=== PATIENT | female | born 1950 | race Caucasian/White ===

== ENCOUNTER → 2020-01-08 10:50 | Outpatient (CLI) | payer MEDICARE, OTHER, SELFPAY ==
--- NOTE | 2020-01-08 11:10 | RAD_ITS ---
STUDY: X-RAY - CERVICAL SPINE REASON FOR EXAM: Female, 69 years old. NECK PAIN TECHNIQUE: 3 view(s) of the cervical spine were obtained. COMPARISON: None FINDINGS: Craniocervical junction is intact and aligned. There is mild reversal of cervical lordosis with kyphosis centered on C4-C5. There are multilevel age-appropriate degenerative changes. Mineralization is decreased. There is superimposed endplate related and osteophyte based sclerosis. Paravertebral soft tissues are intact and the airways are patent. RAD/Cerv Spine 4 or 5 Views IMPRESSION: Age-related spondylosis. Electronically Signed: Bhavik Lozano, at 19:01 EST Tel , Service support ,
== END ==
PROVIDERS: PCP Internal Medicine; Referring Provider Nurse Practitioner Family; Visit Provider Nurse Practitioner Family
DX: M54.2 Cervicalgia (principal)
CPT/HCPCS: 72050

== ENCOUNTER → 2020-06-17 06:21 | Outpatient (CLI) | payer MEDICARE, OTHER, SELFPAY ==
--- NOTE | 2020-06-17 06:36 | MRI_ITS ---
STUDY: MRI CERVICAL SPINE WITHOUT CONTRAST REASON FOR EXAM: Female, 70 years old. neck pain, bilat hands/forearm pain TECHNIQUE: Standardized fat and water weighted pulse sequences were obtained in the sagittal and axial planes. COMPARISON: X-ray 01/08/2020 FINDINGS: Normal foramen magnum and brainstem-cervical cord junction. Normal craniovertebral junction. Normal anterior atlantoaxial articulation. Normal odontoid process. There is straightening of the normal cervical lordosis. Normal vertebral bodies and posterior osseous elements. C2-3: Normal endplates. Normal disc height, signal and morphology. Normal central canal and intervertebral neural foramina. C3-4: Normal endplates. Normal disc height, signal and morphology. Normal central canal and intervertebral neural foramina. C4-5: Mild broad disc osteophyte complex produces mild spinal stenosis but no neural foraminal stenosis. C5-6: 5 mm retrolisthesis of C5 on C6 with a moderate broad disc osteophyte complex asymmetric left produces moderate spinal stenosis with effacement of the left hemicord and moderate left neural foraminal stenosis. C6-7: Moderate broad disc osteophyte complex produces moderate spinal stenosis and mild bilateral neural foraminal stenosis. C7-T1: Normal endplates. Normal disc height, signal and morphology. Normal central canal and intervertebral neural foramina. Normal cervical cord. Normal visualized soft tissue structures. MRI/Spine Cervical (Routine) IMPRESSION: Multilevel degenerative changes, as described above. Electronically Signed: Colby Heard MD at 15:08 EDT Tel , Service support ,
== END ==
PROVIDERS: PCP Internal Medicine; Referring Provider Anesthesiology Pain Medicine; Visit Provider Anesthesiology Pain Medicine
DX: M50.30 Other cervical disc degeneration, unspecified cervical region (principal); M54.12 Radiculopathy, cervical region
CPT/HCPCS: 72141

== ENCOUNTER 2020-09-17 16:22 | Emergency (ER) | payer MEDICARE, OTHER, SELFPAY ==
[2020-09-17 16:24] VITALS: BP 144/99; PULSE 88; RESP 18; TEMP 36.1; O2SAT 99
--- NOTE | 2020-09-17 16:47 | ED.VIS.GEN ---
History of Present Illness Chief Complaint: Fall Informant: Patient Onset: Today Maximum Severity: Mild Narrative: Patient presents today reporting a fall she basically tripped over her cat fell forward struck the coffee table suffered laceration to the right forehead, she had no LOC she is on no blood thinners she has no neck chest or abdominal pain no extremity pain no back pain has a very mild headache no nausea or vomiting her functional status neurologic status is baseline and normal her tetanus is up-to-date Past Medical History - Allergies and Home Meds Allergies/Adverse Reactions: Allergies Sulfa (Sulfonamide Antibiotics) Allergy (Verified 09/17/20 16:22) Hives Primary Care Physician: Claritza Dumont MD [Primary Care Provider] - Past Medical History: - Smoking Status: Never smoker Review of Systems ROS: - Retention includes as above General: Reports: - - Head lack as above. Denies: Chills, Fever, Sweats Eyes: Denies: Visual changes - bilaterally, Diplopia ENT: Denies: Rhinorrhea, Sore throat Cardiovascular: Denies: Chest pain, Palpitations Respiratory: Denies: Dyspnea, Cough, Dyspnea on exertion Gastrointestinal: Denies: Abdominal pain, Nausea, Vomiting, Diarrhea, Melena, Hematochezia Genitourinary: Denies: Dysuria, Hematuria, Frequency Musculoskeletal: Denies: Back pain, Extremity Pain Skin: Reports: Wounds. Denies: Rash Neurological: Denies: Headache, Weakness, Numbness Physical Exam Vital Signs/Narrative: Vital Signs Temp Pulse Resp BP Pulse Ox 09/17/20 16:24 97 F L 88 18 144/99 H 99 General: Well nourished, Well developed, No Acute Distress Head: Normocephalic, - - She has about a 2 cm vertical laceration adjacent to this is a half a centimeter more lateral laceration forming an inverted T to the left, it is no subcu air pupils are equal reactive nose and throat HEENT exam neck chest abdomen upper lower extremity exam all unremarkable neurologic exam remarkabl Eyes: Perrl, EOMI ENT: Moist mucous membranes, No rhinorrhea Neck: Supple, Nontender Cardiovascular: Regular rate, Regular rhythm, No murmurs Respiratory: No distress, CTA bilaterally, Chest nontender Abdomen: Soft, Nontender, Nondistended, Normal bowel sounds Back: Nontender, Normal Inspection Extremities: Nontender, No edema Skin: Normal color, No rash Neurological: Alert, Oriented x3, Cranial nerves II-XII grossly intact, Normal Strength, Normal Sensation Psychological: Normal affect, Normal Mood Diagnostic/Tx/Re-eval - Medical Decision Making wound care with her, she does not wish to have sutures preferred glue the area was still sterilely prepped copiously irrigated cleansed and then glue applied with good results she understands the above management with the glue she is remained awake and alert neurologic exam unremarkable discussed head CT brain imaging given the fall for life-threatening conditions she declined she also declined tetanus stating her tetanus is less than 2 years Home stable Final impression 2 cm forehead laceration after fall was with glue at patient request ED Disposition - Plan for ED Patient: Diagnosis: 2 cm forehead laceration Instructions: ED Laceration All Closures Referrals: Claritza Dumont MD [Primary Care Provider] -
[2020-09-17] MEDS: Ibuprofen 600 MG Tablet PO (16:55)
== END 2020-09-17 17:11 | disposition home or self-care (01) ==
PROVIDERS: Emergency Provider Emergency Medicine; PCP Internal Medicine
DX: S01.81XA Laceration without foreign body of other part of head, initial encounter (principal); W19.XXXA Unspecified fall, initial encounter
CPT/HCPCS: 99283

== ENCOUNTER 2021-08-05 13:30 | Outpatient (RCR) | payer MEDICARE, OTHER, SELFPAY ==
--- NOTE | 2021-06-24 09:09 | HP.OTEVAL_ITS ---
Patient's Visit Information ALDO TAI is a 71 year old F, referred to Occupational Therapy by RAFFAELE Harris, with a diagnosis of Hand pain/arthralgia. Date of Evaluation: 06/17/21 Occupational Therapist: Teresita Adhikari, OTR/Manny, CHT - Subjective This 71/F was seen today for OT eval for bilateral hand pain. She stated that her hands hurt constantly and there isn't a time where they don't hurt. They are stiff in the morning, but after she moves, the pain starts. She has been dealing with this pain for at least a year, but it has gotten worse in the past few months. Pt reported that she thinks she exacerbated her hands when she was using the rowing machine in the gym; she stated she might have been doing it too h manjula. She reported that she has tried everything and is willing to try anything. She stated that it wakes her up at night, and she believe she might curl in her sleep. She reported she fell a few months ago and smacked her R hand on the ground, which resulted in ligament damage. She does not like holding hands and certain fabrics irritate her hands. She loves to cook, but hasn't been able to cook often because of her pain and her inability to keep ahold of things. She stated that when she picks things up closer to the ground, it is harder and the pain is worse. - Pain bilateral hands 7 - ROM Shoulder: R:WFL L:WFL Elbow: R:WFL L:WFL Forearm: R:WFL L:WFL Wrist: R: 50*/65*, L: 60*/60* - Strength Senior Market Research Analyst: R: 40# L: 30# Lateral Pinch: R: 10# L: 7# Tripod Pinch: R: 7# L: 9# - DASH-Disabilities of Arm, Shoulder& Hand DASH Sum: 4 - Quick DASH-Disab of Arm,Shoulder& Hand Quick DASH Score: 54.5450 - Goals Goal:: pt will demonstrate an increase in L hand strength by at least 8# to equate her R hand to return to meal preparation tasks by d/c. pt will demonstrate an increase in lateral and 3-jaw domenico pinch strength by at least 2# each to be more independent in ADL and IADL tasks by d/c. Goal:: pt will self-report pain no greater than a 3/10 with use to return to leisure activities by d/c. - Rehabilitation General Assessment: Pt demonstrated heightened pain and decreased sensation in her bilateral hands. pt would benefit from skilled OT services 1x a week for 4 weeks to decrease pain and sensitivity to be more independent in her ADLs, IADLs, and leisure tasks. Today, therapist educated pt on nerve glides to begin her HEP and pain management skills (contrast baths) to decrease pain. Pt agreed and understood POC. Therapy session directly supervised and doc. approved by Peg Adhikari OTR/L,CHT Rehabilitation Potential: Good - Anticipated Interventions Strengthening, Desensitization, Joint Protection/Energy Conservation, ADL Training, Home Program - Visit Plan Frequency: 1x/Week Duration: 4 Weeks TEXT: Thank you for the opportunity to evaluate your patient. For Medicare and Medicare HMO plans, please review the plan of care and approve it. It will need to be FAXED BACK to us at [phone] for Medicare purposes. Please let me know if there are questions or concerns regarding this plan of care. Physician Signature: Date:
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
== END 2021-08-05 19:00 | disposition home or self-care (01) ==
LOC: OT 13:30
PROVIDERS: PCP Internal Medicine; Referring Provider Nurse Practitioner Family; Visit Provider Nurse Practitioner Family
DX: M79.643 Pain in unspecified hand (principal); M25.549 Pain in joints of unspecified hand; M54.12 Radiculopathy, cervical region
CPT/HCPCS: 97110; 97140; 97165; 97530

== ENCOUNTER 2021-12-15 07:52 | Outpatient (CLI) | payer MEDICARE, OTHER, SELFPAY ==
--- NOTE | 2021-12-15 07:53 | MRI_ITS ---
STUDY: MRI RIGHT HAND REASON FOR EXAM: Right hand pain, paresthesias, abnormal radiograph. TECHNIQUE: Standardized fat and water weighted pulse sequences were obtained in all 3 orthogonal planes. COMPARISON: Radiographs 12/03/2021. FINDINGS: There is a mildly retracted avulsion fracture at the dorsal aspect of the base of the fourth distal phalanx at the extensor tendon insertion (T2 sagittal image 13). Otherwise, unremarkable phalanges and metacarpals. Normal extensor tendons of the first, second, third and fifth digits. There is very mild flexor tenosynovitis of the third and fourth digits at the level of the distal metacarpals (inversion recovery axial images 17-19) and mild flexor tenosynovitis of the fourth digit at the level of the proximal phalanx (inversion recovery axial image 28). Otherwise, unremarkable flexor tendons. Normal metacarpophalangeal joints. There is arthrosis with joint space narrowing of the fourth distal interphalangeal joint (T2 sagittal image 13). Otherwise, unremarkable interphalangeal joints. There is no demonstrated soft tissue mass or cyst. Normal intrinsic muscles of the hand. MRI/Upper Ext/No Jt/ wo IMPRESSION: Mild retracted avulsion fracture at the dorsal aspect of the base of the fourth distal phalanx. Mild flexor tenosynovitis of the third and fourth digits. 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 Electronically Signed: Jesse Rogers MD at 12:50 EST ,
== END 2021-12-15 23:59 | disposition short-term general hospital (02) ==
PROVIDERS: PCP Internal Medicine; Referring Provider Orthopaedic Surgery; Visit Provider Orthopaedic Surgery
DX: D16.10 Benign neoplasm of short bones of unspecified upper limb (principal)
CPT/HCPCS: 73218

== ENCOUNTER 2023-09-16 10:00 | Outpatient (RCR) | payer MEDICARE, OTHER, SELFPAY ==
--- NOTE | 2023-08-12 12:23 | HP.PTEVAL ---
Patient's Visit Information Visit Information Visit Information: ALDO TAI is a 73 year old F referred to Physical Therapy by Dr. Obed Roger MD with a diagnosis of LUMBOSACRAL RADICULOPATHY AND DDD. Date of Evaluation: 08/12/23 Physical Therapist: Elyse Mathew, PT, Cert MDT Visit Plan Frequency: 2x /Week Duration: 4-6 Weeks Plan: *CHECK AUTH NEXT VISIT: RECORD # OF VISITS APPROVED AND EXPIRATION DATE. CHECK CODES APPROVED WITH POC* PT 2X'S A WK X 10 VISITS FOR POSTURE CORRECTION AND STRENGTHENING. INSTRUCT IN PROPER BODY MECHANICS FOR ADL'S. CORE STRENGTHENING AND STABILIZATION WITH NEUTRAL SPINE. CRICKET LE STRETCHING AND STRENGTHENING. 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 START SLOW AND AVOID PERIPHERALIZATION OF SX'S. Subjective Subjective: Work/Leisure: RETIRED. [employer] MEM[employer]. Present symptoms: LOW BACK PAIN. RIGHT THIGH PAIN AND L TOE TINGLING. Present since: YEARS AGO Pain Scale: WORST 7/10, LEAST 5/10 Currently: 5/10 Is it getting better, worse or staying the same: GETTING BETTER Commenced as a result of: NO APPARENT REASON Worse: BEING ON FEET A LOT, BENDING, LIFTING, HOUSEWORK, GETTING THINGS IN/OUT OF OVEN Better: INJECTIONS, TRAMADOL Disturbed sleep: YES Previous history/Previous treatment: GOPI'S - FOR ABOUT 3 YEARS WITH THE LAST ONE BEING ABOUT 6 WEEKS AGO WITH BENEFIT. NO PRIOR PT FOR BACK. NO CHIROPRACTIC. NO BACK SURGERY. CURRENTLY TAKING TRAMADOL NEEDED - NOT DAILY. Coughing/sneezing/straining: NEGATIVE Gait: NO AD'S. NOT FALLING. BACK AND R LE PAIN CAUSES LIMPING AND CAUSE WALKING TO BE TIME AND DISTANCE LIMITED. Bowel or Bladder Dysfunction: NO Accidents: NO Unexplained weight loss: NO Imaging: PATIENT REPORTS SHE HAD A RECENT LUMBAR MRI AT [facility] BUT THIS PT UNABLE TO SEE RESULTS. PMH/Recent major surgery: HTN OTHER: USING TREADMILL, NUSTEP AND LEG PRESS HERE AT [employer] ABOUT 3 DAYS A WEEK. Objective Objective: Sitting/Standing Posture: FAIR. MILD FH AND RSH'S. DECREASED LUMBAR LORDOSIS BUT NO RELEAVANT LATERAL SHIFT. Active Correction of posture: BETTER Other Observations: INDEP GAIT INTO PT WITH MILD LIMP ON R LE. NO LOB. GOOD CADANCE. DECREASED CRICKET STRIDE LENGTH. Sensory deficit: CRICKET LE LIGHT TOUCH SENSATION IS GROSSLY INTACT AND SYMMETRICAL ROM deficit: CRICKET HIP FLEXOR, HS AND GASTROC-SOLEUS COMPLEX TIGHTNESS. Motor deficit: R LE WEAKNESS > LEFT. R LE: HIP 4-/5, KNEE 4/5, ANKLE 5/5. L LE: HIP 4/5, KNEE 5/5, ANKLE 5/5. Dural Signs: POSITIVE R LE Lumbar mvmt loss: flex - MIN TO MOD ext - NAN R SG - MOD L SG - MOD PATIENT C/O INCREASED LBP WITH LUMBAR ROM TESTING INTO EXT AND CRICKET SG'ING. Core strength: POOR Palpation: NO ACUTE LUMBOSACRAL TENDERNESS WITH PALPATION. Balance/Special Test Scores Oswestry Low Back Score: 15 Goals Goal 1:: DECREASE C/O BACK AND R LE SX'S. Goal Time Frame: 4-6 Weeks Goal 2:: IMPROVE PERSONAL CARE, LIFTING, WALKING, SITTING, STANDING AND HOMEMAKING FUNCTION. Goal Time Frame: 4-6 Weeks Goal 3:: INSTRUCT IN PROPHYLAXIS Goal Time Frame: 4-6 Weeks Anticipated Interventions Patient/Client Instruction: Educate patient on: Condition, Plan of Care and Risk Factors For the Purpose of:: To improve self management Therapeutic Exercise to Include: Strength training, Body mechanics, Postural training, Flexibilty training, Neuromotor development and Dynamic Lumbar Stabilization For the Purpose of:: To decrease pain, To increase ROM, To improve muscle performance and motor function, To increase tolerance to activity/condition/position, To improve ability of physical actions for home/community/work/leisure and To improve gait and locomotor functions Text: Thank you for the opportunity to evaluate your patient. For Medicare and Medicare HMO plans, please review the plan of care and approve it. It will need to be FAXED BACK to us at [phone] for Medicare purposes. For Medicare only, by signing this I certify the plan of care. Please let me know if there are questions or concerns regarding this plan of care. Physician Signature: Date:
--- NOTE | 2023-09-16 10:31 | HP.PTDCSUM_ITS ---
Discharge Summary D/C summary: It has been my pleasure to treat ALDO TAI referred by Dr. Obed Roger MD, with the diagnosis of LUMBOSACRAL RADICULOPATHY AND DDD for a total of 8 visit(s). Discharge Date: 09/16/23 Please see the following information for a summary of their discharge status. Subjective Subjective: PATIENT REPORTS SHE IS WALKING BETTER AND HER POSTURE IS BETTER. SHE STATES HER LEGS FEEL STRONGER TOO. OVER-ALL PATIENT REPORTS SHE HAS LESS P AIN AND IS TAKING LESS TRAMADOL - CURRENTLY TAKING IT ABOUT ONCE A DAY BEFORE BED. PATIENT REPORTS SHE HAS BEEN STARTING TO TRANSITION TO INDEP GYM EX'S AND IT IS GOING WELL. PATIENT REPORTS ANOTHER GOPI IS PLANNED FOR 09/29/23. Overall Improvement % Improvement: 50 Objective Objective/Function: PATIENT WAS SEEN TODAY FOR RE-ASSESSMENT OF PROGRESS TOWARD THE SET PT GOALS AND THE NEED FOR FURTHER PHYSICAL THERAPY VS READINESS FOR DISCHARGE. ALL GOALS HAVE BEEN MET AND PATIENT IS INDEP WITH BOTH GYM AND HOME EX PROGRAMS. PATIENT IS CURRENT [employer]. UPON EXAM TODAY: Motor deficit: CRICKET LE'S GROSSLY 5/5 WITH MMT'ING EXCEPT HIPS 4+/5. PATIENT DENIED PAIN WITH TESTING TODAY. Dural Signs: NEGATIVE CRICKET LE'S. Lumbar mvmt loss: flex - NIL ext - NAN R SG - MOD L SG - MOD PATIENT DENIES PAIN WITH LUMBAR ROM TESTING ALL PLANES TODAY AND HAS INCREASED LUMBAR FLEXION ROM TODAY COMPARED TO INITIAL EVAL. Core strength: FAIR Goals Goal 1:: DECREASE C/O BACK AND R LE SX'S. Goal Progress: Goal Met Goal 2:: IMPROVE PERSONAL CARE, LIFTING, WALKING, SITTING, STANDING AND HOMEMAKING FUNCTION. Goal Progress: Goal Met Goal 3:: INSTRUCT IN PROPHYLAXIS Goal Progress: Goal Met Plan Plan: D/C TO INDEP EX. PATIENT AGREEABLE. D/C Information d/c sentence: If there are questions or concerns regarding this patient's physical therapy, please feel free to call me at [phone]. Thank you for the referral of this patient. Sincerely, Elyse Mathew, PT, Cert MDT Balance/Gait/Functional tests Balance/Special Test Scores Oswestry Low Back Score: 10 Improvement % Improvement: 50
== END 2023-09-16 10:48 | disposition home or self-care (01) ==
LOC: PT 10:00
PROVIDERS: PCP Internal Medicine; Referring Provider Anesthesiology Pain Medicine; Visit Provider Anesthesiology Pain Medicine
DX: M54.17 Radiculopathy, lumbosacral region (principal); M51.37 Other intervertebral disc degeneration, lumbosacral region
CPT/HCPCS: 97110; 97162; 97164

== ENCOUNTER 2024-11-16 10:00 | Outpatient (RCR) | payer MEDICARE, OTHER, SELFPAY ==
--- NOTE | 2024-10-18 12:04 | HP.PTEVAL_ITS ---
Patient's Visit Information Visit Information Visit Information: ALDO TAI is a 74 year old F referred to Physical Therapy by Dr. Obed Roger MD with a diagnosis of LBP with R sciatica. Date of Evaluation: 10/18/24 Physical Therapist: Bull Cifuentes, PT, ATC Visit Plan Frequency: 2x /Week Duration: 4-6 Weeks Plan: Postural edu, SKTC/DKTC, core stab ex's, nustep, and HEP Subjective Subjective: Pt reports a chronic Hx of LBP and sciatica for several years. Pt notes she has had several injections in the past which usually make a good ch damaris, but only temporarily. Pt notes this sciatic pain she has is severe today and has been present for a couple weeks. Pt reports she is trying PT at this time in an attempt to decrease her pain. If this doesn't work, she will end up seeing a spinal surgeon. Pt reports sleep difficulty at this time secondary to pain without the use of her pain med. Pt reports she has had PT in the past which was beneficial for a temporary time frame. Pt reports she had a fall approximately one month ago and believes that may have been what caused this episode of pain to occur. Pt reports her R LE radiculopathy extends from her R glute region to her toes at times. It only extends to her calf today. Pt reports walking and yard work tend to increase her pain. Pt reports 7/10 pain in LB and R LE while sitting here at rest, 10/10 pain at worst Pain LBP and R LE: Pain Intensity (Out of 10): 7 Pain Intensity Range: 10 Objective Objective: Neuro: B L4-5 dermatomes are hyposensitive to light touch. All other LE sensation is WNL compared bilaterally MMT: B LE's are equal when compared bilaterally ROM: Pt is moderately limited with R sidebend. Pt is severely limited with extension. Repeated movements: SKTC/DKTC 10 sec x 3 ea Gait: Pt ambulates with a slow damari. Balance/Special Test Scores Oswestry Low Back Score: 14 Goals Goal 1:: Decrease LBP x 50% to aid with sleep Goal Time Frame: 4-6 Weeks Goal 2:: Decrease the frequency and intensity of R LE radiculopathy x 25% to aid with ambulation Goal Time Frame: 4-6 Weeks Goal 3:: I with HEP Goal Time Frame: 4-6 Weeks Rehabilitation Potential Physical Therapy Diagnosis: Pt has R LE radiculopathy and LBP secondary to degenerative changes in the L/S Rehabilitation Potential: Good Anticipated Interventions Patient/Client Instruction: Educate patient on: Condition and Plan of Care For the Purpose of:: To improve self management Therapeutic Exercise to Include: Strength training, Body mechanics, Flexibilty training, Dynamic Lumbar Stabilization and Joe Exercises For the Purpose of:: To decrease pain, To increase ROM and To improve muscle performance and motor function Text: Thank you for the opportunity to evaluate your patient. For Medicare and Medicare HMO plans, please review the plan of care and approve it. It will need to be FAXED BACK to us at [phone] for Medicare purposes. For Medicare only, by signing this I certify the plan of care. Please let me know if there are questions or concerns regarding this plan of care. Physician Signature: Date:
--- NOTE | 2025-01-30 11:50 | HP.PT.NRP ---
Patient Information Patient Information: ALDO TAI was seen in my office for initial evaluation on 10/18/24. The following Plan of Care was established for this patient: POC Established Initial Frequency: 2x /Week Initial Duration: 4-6 Weeks Anticipated Interventions Patient/Client Instruction: Educate patient on: Condition and Plan of Care For the Purpose of:: To improve self management Therapeutic Exercise to Include: Strength training, Body mechanics, Flexibilty training, Dynamic Lumbar Stabilization and Joe Exercises For the Purpose of:: To decrease pain, To increase ROM and To improve muscle performance and motor function Last Seen Last Seen: This patient was last seen in our office . Pertinent comments regarding their Physical therapy will appear below: Pt has not returned to physical therapy in over 30 days, and is discontinued at this time. At this point I will be discontinuing this patient from physical therapy. I would be happy to see this patient again in the future if found appropriate by the physician. Thank you! Bull Cifuentes, PT, ATC Balance/Gait/Functional tests Balance/Special Test Scores Oswestry Low Back Score: 11
== END 2024-11-16 19:00 | disposition home or self-care (01) ==
LOC: PT 10:00
PROVIDERS: PCP Internal Medicine; Referring Provider Anesthesiology Pain Medicine; Visit Provider Anesthesiology Pain Medicine
DX: M54.17 Radiculopathy, lumbosacral region (principal); M51.372 Other intervertebral disc degeneration, lumbosacral region with discogenic back pain and lower extremity pain
CPT/HCPCS: 97110; 97161; 97530